=== PATIENT | female | born 1990 | race Two or more races ===

== ENCOUNTER 2022-10-04 20:59 | Emergency (ER) | payer MEDICAID ==
[~2022-10-04] VITALS: Ht 170.2 cm; Wt 99.4 kg
[2022-10-05 00:47] LABS: Urine Bacteria NONE SEEN /hpf (None Seen); Urine Blood Negative /uL (Negative); Urine Specific Gravity 1.006 (1.001-1.035); Urine WBC 3 /hpf (0 - 5)
[2022-10-05 02:45] VITALS: BP 113/73
[2022-10-05] MEDS ORDERED: MORPHINE SULFATE 4 MG/ML SYR/VIAL IM ONE (02:45)
[2022-10-05] MEDS ORDERED: METOCLOPRAMIDE HCL 10 MG TAB PO ONE (02:45)
== END 2022-10-05 03:37 | disposition home or self-care (01) ==
LOC: ER 20:59
DX: R10.9 Unspecified abdominal pain (principal); R06.02 Shortness of breath; F17.210 Nicotine dependence, cigarettes, uncomplicated; Z32.02 Encounter for pregnancy test, result negative; Z88.8 Allergy status to other drugs, medicaments and biological substances
CPT/HCPCS: 71046; 81001; 81025; 96372; 99284; J2270; J8597

== ENCOUNTER 2023-09-18 19:55 | Emergency (ER) | payer MEDICAID ==
[~2023-09-18] VITALS: Ht 170.2 cm; Wt 126.1 kg
[2023-09-18 20:14] VITALS: BP 113/82; PULSE 95; RESP 97; TEMP 98.2; O2SAT 97
[2023-09-18] MEDS ORDERED: HYDROcodone-ACET 5/325MG TAB PO ONE (22:15)
[2023-09-18] MEDS ORDERED: PERCOT PO (22:20)
[2023-09-18] MEDS ORDERED: KETOROLAC TROMETH 60MG/2ML VIAL IM ONE (22:30)
== END 2023-09-19 05:54 | disposition home or self-care (01) ==
LOC: ER 19:55
DX: S83.91XA Sprain of unspecified site of right knee, initial encounter (principal); F17.210 Nicotine dependence, cigarettes, uncomplicated; Z88.8 Allergy status to other drugs, medicaments and biological substances; W01.0XXA Fall on same level from slipping, tripping and stumbling without subsequent striking against object, initial encounter; Y93.89 Activity, other specified; Y92.89 Other specified places as the place of occurrence of the external cause; Y99.8 Other external cause status
CPT/HCPCS: 73700; 96372; 99285; J1885